=== PATIENT | female | born 1945 | race Caucasian/White ===

== ENCOUNTER 2016-06-18 10:59 | Emergency (ER) | payer OTHER ==
[~2016-06-18] VITALS: Ht 152.4 cm; Wt 47.5 kg
[~2016-06-18 10:59] MED LIST: ABILIFY2 MG PO; ACTOS15 MG PO; ALDOMET250 MG PO; AMBIEN CR6.25 MG PO; AMBIEN10 MG; AMBIEN10 MG PO; ATARAX10 MG PO; ATORVASTATIN CA40 MG PO; BYSTOLIC10 MG PO; Bystolic PO; CALCITRIOL0.25 MC1 PO; CARDURA2 M1 PO; CATAPRES0.1 MG PO; CEFTIN500 MG PO; CENTRUM SILVER1 EACH PO; CILOSTAZOL100 MG; CILOSTAZOL100 MG PO; CIPRO500 MG PO; CIPROFLOXACIN250 MG PO; CITALOPRAM HBR20 MG PO; CITRACAL + D C1 EACH PO; CLONAZEPAM0.5 MG; CONSTULOSE10 GM/15 M PO; CRESTOR10 MG PO; CYANOCOBALAM1000 MCG PO; CYMBALTA30 MG PO; DILAUDID2 MG PO; DIOVAN HCT 11 TABLET PO; DIOVAN HCT 1601 EACH PO; DIOVAN80 MG PO; DOXAZOSIN MESYLA2 MG PO; DOXYCYCLINE HY100 MG PO; DURAGESIC50 MCG TD; Duragesic TD; ENDOCET 10-3251 EACH PO; ENDOCET 5-3251 EACH PO; FENTANYL1 EAC5 TD; HYDROMORPHONE HC4 MG PO; HYDROXYZINE HCL10 MG PO; HYDROXYZINE PA100 MG PO; Habitrol,Nicoderm CQ TD; IRON; LABETALOL HCL200 MG PO; LASIX20 MG PO; LEXAPRO20 MG PO; LISINOPRIL10 MG PO; LORAZEPAM0.5 MG PO; LUNESTA3 MG PO; LYRICA75 MG PO; Levaquin PO; MIRTAZAPINE15 MG PO; MORPHINE SULFAT15 MG PO; NIFEDICAL XL30 MG PO; NIFEDICAL XL60 MG PO; NIFEDIPINE ER60 MG PO; NORCO 5/3251 TABLET PO; NORMODYNE,TRAN200 MG PO; Neurontin PO; OXYCODONE HCL15 MG PO; OxyCONTIN PO; PANTOPRAZOLE SO40 MG PO; PARAFON FORTE500 MG PO; PARICALCITOL1 MCG PO; PAROXETINE HCL20 MG PO; PLAVIX75 MG PO; PLETAL100 MG PO; PROTONIX40 MG PO; Plavix PO; Procardia XL,Adalat PO; Proventil,Ventolin H IH; QUETIAPINE FUMA25 MG PO; REMERON15 M2 PO; RENVELA800 MG PO; RESTORIL15 MG PO; SEROQUEL12.5 MG PO; SEROQUEL50 MG PO; SEROquel PO; SIMVASTATIN20 MG; SIMVASTATIN20 MG PO; Senokot,Sennagen PO; TEMAZEPAM15 MG PO; TIZANIDINE HCL4 M1 PO; TOPAMAX25 MG PO; Tylenol/Codeine #3 PO; ULORIC40 MG PO; VIIBRYD10 MG PO; VITAMIN D1000 INTUN PO; VITAMIN D1000 UNIT PO; VITAMIN D2000 UNIT PO; VITAMIN D31000 UNI2 PO; Vitamin B-12 PO; ZEMPLAR1 MCG PO; ZOCOR20 MG PO; ZOLPIDEM TART6.25 MG; ZOLPIDEM TARTRA10 MG PO; [UNRECOGNIZED DRUG - OTHER] PO; oxyCODONE PO
[2016-06-18 11:52] LABS: HEMATOCRIT 34.3 % (36.0-46.0); MCH 30.2 PG (29.0-34.0); MCHC 33.5 G/DL (30.0-36.0); MEAN PLAT.VOLUME 11.1 uM^3 (9.5-12.4); PLATELET COUNT 322 K/uL (156-360); RBC DIS.WIDTH-CV 14.1 % (11.8-14.6); RBC DIS.WIDTH-SD 44.8 % (39-53); RED BLOOD COUNT 3.81 M/uL (3.80-5.20); WHITE BLOOD COUNT 9.6 K/uL (4.1-10.2)
[2016-06-18 12:05] LABS: CHLORIDE 111 mEq/L (99-109); POTASSIUM 3.4 mEq/L (3.7-5.4); SODIUM 143 mEq/L (136-147)
[2016-06-18 12:07] LABS: GLUCOSE 114 mg/dL (70-99)
[2016-06-18 12:08] LABS: ANION GAP 10 MEQ/L (2-14)
[2016-06-18 12:09] LABS: TOTAL BILIRUBIN 0.4 mg/dL (0.0-1.0)
[2016-06-18 12:11] LABS: ALKALINE PHOSPHATASE 54 IU/L (3-129); GFR ESTIMATE (CALCULATED) 22 mL/min/
[2016-06-18 12:12] LABS: UREA NITROGEN (BUN) 19 mg/dL (9-23)
[2016-06-18 12:50] LABS: TROP-I INTERPRETATION NEGATIVE; TROPONIN-I < 0.01 ng/mL (0.0-0.30)
[2016-06-18] MEDS ORDERED: ZEMPLAR1 MCG PO (13:03)
[2016-06-18 15:13] VITALS: BP 159/68
== END 2016-06-18 15:16 | disposition home or self-care (01) ==
LOC: EME → EDBD 10:59 → EME 15:16
PROVIDERS: Emergency Medicine
DX: N18.4 Chronic kidney disease, stage 4 (severe) (principal); R10.13 Epigastric pain; J44.9 Chronic obstructive pulmonary disease, unspecified; J43.9 Emphysema, unspecified; J45.909 Unspecified asthma, uncomplicated; I10 Essential (primary) hypertension; E78.5 Hyperlipidemia, unspecified; Z87.891 Personal history of nicotine dependence; Z88.4 Allergy status to anesthetic agent; Z88.6 Allergy status to analgesic agent
CPT/HCPCS: 74176; 80053; 81003; 84484; 85027; 93005; 99281; 99285; J7030

== ENCOUNTER 2016-11-14 11:11 | Emergency (ER) | payer OTHER ==
[~2016-11-14] VITALS: Ht 149.9 cm; Wt 59.7 kg
[2016-11-14 12:26] LABS: EOSINOPHIL (%) 0.8 % (0-5); EOSINOPHIL COUNT 0.1 K/uL (0-0.3); HEMATOCRIT 33.6 % (36.0-46.0); IMMATURE GRANULOCYTE (%) 0.6 % (0.0-0.7); IMMATURE GRANULOCYTE COUNT 0.1 K/uL; INSTRUMENT ABS NEUTROPHIL CT 6.8 K/uL; LYMPHOCYTE COUNT 2.1 K/uL (1.0-2.8); MCH 29.8 PG (29.0-34.0); MCHC 32.7 G/DL (30.0-36.0); MCV 91.1 FL (83-99); MEAN PLAT.VOLUME 10.3 uM^3 (9.5-12.4); MONOCYTE COUNT 0.7 K/uL (0-0.8); NEUTROPHIL (%) 70.1 % (45-76); NEUTROPHIL COUNT 6.8 K/uL (1.8-6.4); PLATELET COUNT 347 K/uL (156-360); RBC DIS.WIDTH-CV 15.9 % (11.8-14.6); RBC DIS.WIDTH-SD 53.3 % (39-53); RED BLOOD COUNT 3.69 M/uL (3.80-5.20); WHITE BLOOD COUNT 9.7 K/uL (4.1-10.2)
[2016-11-14 12:38] LABS: CHLORIDE 111 mEq/L (99-109); POTASSIUM 3.8 mEq/L (3.7-5.4); SODIUM 141 mEq/L (136-147)
[2016-11-14 12:40] LABS: GLUCOSE 117 mg/dL (70-99)
[2016-11-14 12:41] LABS: ANION GAP 8 MEQ/L (2-14)
[2016-11-14 12:44] LABS: GFR ESTIMATE (CALCULATED) 22 mL/min/; UREA NITROGEN (BUN) 18 mg/dL (9-23)
[2016-11-14 13:02] LABS: ADD MIUA? YES; BILIRUBIN NEGATIVE; BLOOD NEGATIVE; COLOR YELLOW ((YELLOW)); GLUCOSE (STRIP) NEGATIVE; KETONES NEGATIVE; LEUKOCYTES NEGATIVE; NITRITE NEGATIVE; PROTEIN (STRIP) 100; SPECIFIC GRAVITY 1.016 (1.000-1.030); UROBILINOGEN 0.2 MG/DL (0.2-1.0)
[2016-11-14 13:10] LABS: BACTERIA NONE SEEN /HPF; EPITHELIAL CELLS RARE /HPF; MUCUS TRACE /LPF; RED BLOOD CELLS 0-5 /HPF (0-5); WHITE BLOOD CELLS 0-5 /HPF (0-5)
[2016-11-14 14:01] VITALS: BP 105/84
== END 2016-11-14 14:04 | disposition home or self-care (01) ==
LOC: EME 11:11
PROVIDERS: Emergency Medicine
DX: G89.29 Other chronic pain (principal); M54.5 Low back pain; S33.5XXA Sprain of ligaments of lumbar spine, initial encounter; M12.9 Arthropathy, unspecified; Z96.89 Presence of other specified functional implants; J45.909 Unspecified asthma, uncomplicated; J44.9 Chronic obstructive pulmonary disease, unspecified; Z86.73 Personal history of transient ischemic attack (TIA), and cerebral infarction without residual deficits; Z95.5 Presence of coronary angioplasty implant and graft; I12.9 Hypertensive chronic kidney disease with stage 1 through stage 4 chronic kidney disease, or unspecified chronic kidney disease; N18.4 Chronic kidney disease, stage 4 (severe); K21.9 Gastro-esophageal reflux disease without esophagitis; Z88.5 Allergy status to narcotic agent; F17.200 Nicotine dependence, unspecified, uncomplicated; Z99.89 Dependence on other enabling machines and devices
CPT/HCPCS: 72100; 73502; 80048; 81003; 85025; 99281; 99284

== ENCOUNTER 2017-02-09 17:04 | Inpatient (IN) | payer OTHER ==
[~2017-02-09] VITALS: Ht 152.4 cm; Wt 57.0 kg
[~2017-02-09 17:04] MED LIST changes: +AMBIEN5 MG PO; +ELAVIL25 MG PO
[2017-02-09 17:46] LABS: HEMATOCRIT 34.5 % (36.0-46.0); MCH 29.7 PG (29.0-34.0); MCHC 33.6 G/DL (30.0-36.0); MCV 88.5 FL (83-99); PLATELET COUNT 336 K/uL (156-360); RBC DIS.WIDTH-CV 15.1 % (11.8-14.6); RBC DIS.WIDTH-SD 48.7 % (39-53); WHITE BLOOD COUNT 9.9 K/uL (4.1-10.2)
[2017-02-09 18:03] LABS: CHLORIDE 109 mEq/L (99-109); POTASSIUM 3.5 mEq/L (3.7-5.4); SODIUM 140 mEq/L (136-147)
[2017-02-09 18:05] LABS: GLUCOSE 82 mg/dL (70-99)
[2017-02-09 18:06] LABS: ANION GAP 12 MEQ/L (2-14)
[2017-02-09 18:09] LABS: GFR ESTIMATE (CALCULATED) 22 mL/min/; UREA NITROGEN (BUN) 20 mg/dL (9-23)
[2017-02-09 18:16] LABS: TROP-I INTERPRETATION NEGATIVE; TROPONIN-I 0.03 ng/mL (0.0-0.30)
[2017-02-09 18:41] LABS: ADD MIUA? YES; BILIRUBIN NEGATIVE; BLOOD SMALL; COLOR YELLOW ((YELLOW)); GLUCOSE (STRIP) NEGATIVE; KETONES NEGATIVE; LEUKOCYTES LARGE; NITRITE NEGATIVE; PROTEIN (STRIP) NEGATIVE; SPECIFIC GRAVITY 1.011 (1.000-1.030); UROBILINOGEN 0.2 MG/DL (0.2-1.0)
[2017-02-09 18:45] LABS: BACTERIA RARE /HPF; EPITHELIAL CELLS NONE SEEN /HPF; GRANULAR CASTS 0-5 /LPF; MUCUS TRACE /LPF; RED BLOOD CELLS 0-5 /HPF (0-5); UCUL ADDED? YES; WHITE BLOOD CELLS TNTC /HPF (0-5); WHITE BLOOD CELLS CLUMP MANY /HPF (0-5)
[2017-02-10] MEDS ORDERED: LIPITOR20 MG PO (00:26)
[2017-02-10] MEDS ORDERED: SEROQUEL100 MG PO (00:27)
[2017-02-10] MEDS ORDERED: B-COMPLEX-VITA1 EACH PO (00:29)
[2017-02-10] MEDS ORDERED: ZESTRIL10 MG PO (00:41)
[2017-02-10 02:00] VITALS: BP 133/88
[2017-02-10 04:29] VITALS: BP 178/58; BP 181/84
[2017-02-10 06:35] LABS: TROP-I INTERPRETATION NEGATIVE; TROPONIN-I 0.02 ng/mL (0.0-0.30)
[2017-02-10 09:02] LABS: HEMATOCRIT 34.4 % (36.0-46.0); MCH 29.9 PG (29.0-34.0); MCHC 33.1 G/DL (30.0-36.0); MCV 90.3 FL (83-99); MEAN PLAT.VOLUME 10.9 uM^3 (9.5-12.4); PLATELET COUNT 352 K/uL (156-360); RBC DIS.WIDTH-CV 15.6 % (11.8-14.6); RBC DIS.WIDTH-SD 51.7 % (39-53); RED BLOOD COUNT 3.81 M/uL (3.80-5.20); WHITE BLOOD COUNT 10.8 K/uL (4.1-10.2)
[2017-02-10 09:23] LABS: ANION GAP 11 MEQ/L (2-14); CHLORIDE 110 MEQ/L (99-109); GFR ESTIMATE (CALCULATED) 29 mL/min/; GLUCOSE 86 mg/dL (70-99); POTASSIUM 3.7 MEQ/L (3.7-5.4); SAMPLE HEMOLYSIS CHECK 0; SAMPLE ICTERIC CHECK 0; SAMPLE LIPEMIA CHECK 0; SODIUM 141 MEQ/L (136-147); UREA NITROGEN (BUN) 20 mg/dL (9-23)
[2017-02-10 09:55] VITALS: BP 167/73
[2017-02-10 14:00] VITALS: BP 128/59
[2017-02-10 20:00] VITALS: BP 143/62
[2017-02-11 00:09] VITALS: BP 122/54
[2017-02-11 03:47] VITALS: BP 139/81
[2017-02-11 05:18] LABS: HEMATOCRIT 32.8 % (36.0-46.0); MCH 29.9 PG (29.0-34.0); MCHC 33.2 G/DL (30.0-36.0); MCV 90.1 FL (83-99); RBC DIS.WIDTH-CV 15.3 % (11.8-14.6); RBC DIS.WIDTH-SD 51.4 % (39-53); RED BLOOD COUNT 3.64 M/uL (3.80-5.20); WHITE BLOOD COUNT 7.8 K/uL (4.1-10.2)
[2017-02-11 05:37] LABS: ANION GAP 9 MEQ/L (2-14); CHLORIDE 114 MEQ/L (99-109); GFR ESTIMATE (CALCULATED) 28 mL/min/; GLUCOSE 92 mg/dL (70-99); SAMPLE HEMOLYSIS CHECK 0; SAMPLE ICTERIC CHECK 0; SAMPLE LIPEMIA CHECK 0; SODIUM 142 MEQ/L (136-147); UREA NITROGEN (BUN) 17 mg/dL (9-23)
[2017-02-11 07:47] LABS: MEAN PLAT.VOLUME 10.5 uM^3 (9.5-12.4); PLAT.SUFFICIENCY ADEQUATE; PLATELET COUNT 318 K/uL (156-360)
[2017-02-11 09:30] VITALS: BP 154/68
[2017-02-11 11:40] VITALS: BP 100/52
[2017-02-11] MEDS ORDERED: CEFDINIR300 MG PO (14:11)
== END 2017-02-11 17:19 | disposition home health service (06) | DRG 690 ==
LOC: EME 17:04 → EDOF 23:43 → 5WEST 23:43 → ENRESERV 23:45 → 5WEST 02-10 01:43 → ENRESERV 02-10 19:54 → 5WEST 02-11 17:19
PROVIDERS: Emergency Medicine; Hospitalist
DX: N39.0 Urinary tract infection, site not specified (principal); R29.6 Repeated falls; S09.90XA Unspecified injury of head, initial encounter; W22.09XA Striking against other stationary object, initial encounter; E87.6 Hypokalemia; F17.210 Nicotine dependence, cigarettes, uncomplicated; E78.5 Hyperlipidemia, unspecified; I12.9 Hypertensive chronic kidney disease with stage 1 through stage 4 chronic kidney disease, or unspecified chronic kidney disease; N18.4 Chronic kidney disease, stage 4 (severe); J44.9 Chronic obstructive pulmonary disease, unspecified; K21.9 Gastro-esophageal reflux disease without esophagitis; I35.0 Nonrheumatic aortic (valve) stenosis; Z86.73 Personal history of transient ischemic attack (TIA), and cerebral infarction without residual deficits; G89.4 Chronic pain syndrome; R73.03 Prediabetes; Z90.81 Acquired absence of spleen; R32 Unspecified urinary incontinence; Z91.81 History of falling
CPT/HCPCS: 70450; 71010; 72125; 80048; 81003; 82306; 82607; 84484; 85027; 87077; 87086; 87186; 93005; 94799; 99281; 99285; G0378; G8978 GP CJ; G8979 GP CI; G8987 GO CI; G8988 GO CH; J0696; J1644; J3010; J7030; J7050